=== PATIENT | female | born 1990 | race Caucasian/White ===

== ENCOUNTER → 2020-09-28 11:41 | Outpatient (CLI) | payer MEDICAID, SELFPAY ==
[2015-09-18 07:15] VITALS: BMI 34.6
[2020-10-03 20:44] LABS: HPV APTIMA, High Risk Positive (Negative); HPV Reflexed? YES, CHARGE PATIENT
== END ==
PROVIDERS: Visit Provider Obstetrics & Gynecology
DX: Z12.4 Encounter for screening for malignant neoplasm of cervix (principal)
CPT/HCPCS: 87624; 88175; G0145

== ENCOUNTER → 2020-10-05 13:24 | Outpatient (CLI) | payer MEDICAID, SELFPAY ==
[2015-09-18 07:15] VITALS: BMI 34.6
--- NOTE | 2020-10-05 | CER_PTH ---
PATIENT: ALICE CLIFFORD LOC: [facility] U#:[id number] AGE/SX: 35/F ROOM: RE10/05/[address]: Dr. Milton Arzate MD : [id number] BED: DIS: SPEC #: [id number] RECD: 10/05/20 15:45 STATUS: DARY HILDA #: [id number] LIYAH: 10/05/20 00:[address]: Milton Arzate DEPT: SURGICAL PATHOLOGY RECD BY: Yasmany Islas ENTERED: 10/06/20 08:06 SP TYPE: CERV OTHR DR: No Primary Care Phys Tissues: A - Uterine cervix, NOS B - Endocervical Procedures: Surgery Specimen Level IV HEADER OPERATION: Colposcopy PRE-OP DIAGNOSIS: R87.810 TISSUE SUBMITTED: A - Cervical biopsy four quad, B - ECC MICROSCOPIC DIAGNOSIS A. Cervix, four-quadrant, biopsy: Fragments of benign ectocervical epithelium, negative for dysplasia. B. ECC: Fragments of benign ectocervical epithelium. Scant minute fragment of benign endocervical epithelium. Negative for dysplasia. 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 MICROSCOPIC DESCRIPTION Slides are reviewed. GROSS DESCRIPTION A - Received in fixative is one container labeled with the patient's name and designated four-quad cervical biopsy. The specimen consists of multiple irregular fragments of light jarrett soft tissue that in aggregate measure 1 x 0.6 x 0.1 cm. The specimen is totally submitted in one cassette. B - Received in fixative is one container labeled with the patient's name and designated ECC. The specimen consists of multiple minute fragments of jarrett tissue that in aggregate measure 1 x 0.3 x 0.1 cm. The specimen is totally submitted in one cassette. / AM:zoe 10/06/20 TC:4 CPT: 39776 x2
== END ==
PROVIDERS: Visit Provider Obstetrics & Gynecology
DX: R87.810 Cervical high risk human papillomavirus (HPV) DNA test positive (principal)
CPT/HCPCS: 88305